=== PATIENT | male | born 1930 | race Caucasian/White ===

== ENCOUNTER 2017-05-21 22:53 | Inpatient (IN) | payer MEDICARE, BC ==
[2017-05-21] MEDS ORDERED: Sodium Chloride 0.9% 500 ML IV ONE (23:22)
[2017-05-22] MEDS ORDERED: Levofloxacin/Dextrose 5%-Water 750 MG in Premix Bag 1 BAG IV SCH (00:45)
--- NOTE | 2017-05-22 00:55 | EDM.PDOC ---
ED HPI GENERAL MEDICAL PROBLEM - General Chief Complaint: Gastrointestinal Problem Stated Complaint: WEAK Time Seen by Provider: 05/21/17 22:55 Source of Information: Reports: Patient, Family History Limitations: Reports: No Limitations - History of Present Illness INITIAL COMMENTS - FREE TEXT/NARRATIVE: c/o cough x 1w inc'd weak x 24h, ate only toast and 1/2 grapefruit for bfast, ate nothing and drank little today on no meds, never smoked no prior CV or pul problems no f/c/d, quite weak, cough day and night, minimal productive, has had rhinorrhea no flu vax here with and son rales R base on PE, infiltrate R base on XR, labs show inc'd lactic acid with borderline troponin 0.048 pt agrees to admission - Related Data Allergies Allergy/AdvReac Type Severity Reaction Status Date / Time No Known Allergies Allergy Verified 05/21/17 23:08 Home Meds: Home Meds Brimonidine/Timolol [Combigan 0.2%/0.5% Ophth Soln] 1 drop EYEBOTH BID 05/21/17 [History] Latanoprost [Latanoprost] 1 drop EYEBOTH BEDTIME 05/21/17 [History] Past Medical History HEENT History: Reports: Impaired Vision Social & Family History - Family History Family Medical History: Noncontributory - Tobacco Use Smoking Status *Q: Never Smoker - Caffeine Use Caffeine Use: Reports: Coffee, Soda - Recreational Drug Use Recreational Drug Use: No ED ROS GENERAL - Review of Systems Review Of Systems: See Below Constitutional: Reports: Malaise, Weakness, Fatigue, Decreased Appetite. Denies : Fever, Chills, Night Sweats HEENT: Reports: Rhinitis Respiratory: Reports: Shortness of Breath, Cough, Sputum, Other (son reports he can barely walk across room before sob) Cardiovascular: Reports: Dyspnea on Exertion. Denies: Chest Pain, Claudication , Edema, Lightheadedness, Orthopnea Endocrine: Reports: No Symptoms GI/Abdominal: Reports: No Symptoms : Reports: No Symptoms Musculoskeletal: Reports: No Symptoms Skin: Reports: No Symptoms Neurological: Reports: No Symptoms Psychiatric: Reports: No Symptoms Hematologic/Lymphatic: Reports: No Symptoms Immunologic: Reports: No Symptoms ED EXAM, GENERAL - Physical Exam Exam: See Below Exam Limited By: Uncooperative General Appearance: Alert, WD/WN, Mild Distress, Other (alert, pleasant, rare cough, no dyspnea, appears weak, cooperative, conversant) Eye Exam: Bilateral Eye: Normal Inspection, PERRL Ears: Normal External Exam, Normal Canal, Hearing Grossly Normal, Hearing Loss Nose: Normal Inspection, Normal Mucosa, No Blood, Nasal Swelling, Other ( minimal swell, clear d/c) Throat/Mouth: Normal Inspection, Normal Lips, Normal Teeth, Normal Gums, Normal Oropharynx, Normal Voice, No Airway Compromise Head: Atraumatic, Normocephalic Neck: Normal Inspection, Supple, Non-Tender, Full Range of Motion Respiratory/Chest: No Respiratory Distress, No Accessory Muscle Use, Chest Non- Tender, Other (rales R base up 1/3, anterior zarate clear) GI/Abdominal: Normal Bowel Sounds, Soft, Non-Tender, No Organomegaly, No Distention, No Mass Back Exam: Normal Inspection, Full Range of Motion, NT Extremities: Normal Inspection, Normal Range of Motion, Non-Tender, No Pedal Edema Neurological: Alert, Oriented, CN II-XII Intact, Normal Cognition, No Motor/ Sensory Deficits Psychiatric: Normal Affect Skin Exam: Warm, Dry, Intact, Normal Color, No Rash, Other (dec'd turgor ext x 4 , no edema, no tenting) Lymphatic: No Adenopathy Course - Vital Signs Last Recorded V/S: Last Vital Signs Temp 37.2 C 05/21/17 23:05 Pulse 72 05/21/17 23:05 Resp 17 05/21/17 23:05 BP 102/64 05/21/17 23:05 Pulse Ox 96 05/21/17 23:05 - Orders/Labs/Meds Orders: Active Orders 24 hr Category Date Time Status EKG Documentation Completion [RC] ASDIRECTED Care 05/21/17 23:13 Active Chest 2V [CR] Stat Exams 05/21/17 23:12 Taken CULTURE BLOOD [BC] Urgent Lab 05/21/17 23:30 Received CULTURE BLOOD [BC] Urgent Lab 05/21/17 23:38 Received UA W/MICROSCOPIC [URIN] Stat Lab 05/21/17 23:12 Uncollected Levofloxacin/Dextrose 5%-Water [Levaquin in D5W 750 MG/ Med 05/22/17 00:45 Ordered 150 ML] 750 mg Premix Bag 1 bag IV Q24H Blood Culture x2 Reflex Set [OM.PC] Urgent Oth 05/21/17 23:12 Ordered EKG 12 Lead [EK] Routine Ther 05/21/17 23:12 Ordered Medication Orders Levofloxacin/Dextrose 750 mg/ (Premix) 150 mls @ 100 mls/hr IV Q24H LARY Labs: Laboratory Tests 05/21/17 05/21/17 05/21/17 Range/Units 23:30 23:30 23:30 WBC 14.1 H (4.5-12.0) X10-3/uL RBC 5.16 (4.30-5.75) x10(6)uL Hgb 15.5 (11.5-15.5) g/dL Hct 47.6 (30.0-51.3) % MCV 92.3 (80-96) fL MCH 30.0 (27.7-33.6) pg MCHC 32.5 (32.2-35.4) g/dL RDW 13.8 (11.5-15.5) % Plt Count 134 (125-369) X10(3)uL MPV 10.4 (7.4-10.4) fL Add Manual Diff Yes Neutrophils % (Manual) 86 H (46-82) % Band Neutrophils % 2 (0-6) % Lymphocytes % (Manual) 5 L (13-37) % Monocytes % (Manual) 7 (4-12) % Sodium 140 (135-145) mmol/L Potassium 3.9 (3.5-5.3) mmol/L Chloride 104 (100-110) mmol/L Carbon Dioxide 26 (21-32) mmol/L BUN 27 H (7-18) mg/dL Creatinine 1.2 (0.70-1.30) mg/dL Est Cr Clr Drug Dosing 47.77 mL/min Estimated GFR (MDRD) 57 L (>60) BUN/Creatinine Ratio 22.5 H (9-20) Glucose 190 H (80-116) mg/dL Lactic Acid (0.4-2.2) mmol/L Calcium 8.7 (8.6-10.2) mg/dL Total Bilirubin 0.5 (0.1-1.3) mg/dL AST 46 H (5-25) IU/L ALT 39 H (12-36) U/L Alkaline Phosphatase 50 L (56-112) IU/L Troponin I 0.048 (<0.017-0.056) ng/mL C-Reactive Protein 2.3 H (0.5-0.9) mg/dL Total Protein 6.8 (6.0-8.0) g/dL Albumin 3.0 L (3.2-4.6) g/dL Globulin 3.8 g/dL Albumin/Globulin Ratio 0.8 05/21/17 Range/Units 23:30 WBC (4.5-12.0) X10-3/uL RBC (4.30-5.75) x10(6)uL Hgb (11.5-15.5) g/dL Hct (30.0-51.3) % MCV (80-96) fL MCH (27.7-33.6) pg MCHC (32.2-35.4) g/dL RDW (11.5-15.5) % Plt Count (125-369) X10(3)uL MPV (7.4-10.4) fL Add Manual Diff Neutrophils % (Manual) (46-82) % Band Neutrophils % (0-6) % Lymphocytes % (Manual) (13-37) % Monocytes % (Manual) (4-12) % Sodium (135-145) mmol/L Potassium (3.5-5.3) mmol/L Chloride (100-110) mmol/L Carbon Dioxide (21-32) mmol/L BUN (7-18) mg/dL Creatinine (0.70-1.30) mg/dL Est Cr Clr Drug Dosing mL/min Estimated GFR (MDRD) (>60) BUN/Creatinine Ratio (9-20) Glucose (80-116) mg/dL Lactic Acid 3.4 H (0.4-2.2) mmol/L Calcium (8.6-10.2) mg/dL Total Bilirubin (0.1-1.3) mg/dL AST (5-25) IU/L ALT (12-36) U/L Alkaline Phosphatase (56-112) IU/L Troponin I (<0.017-0.056) ng/mL C-Reactive Protein (0.5-0.9) mg/dL Total Protein (6.0-8.0) g/dL Albumin (3.2-4.6) g/dL Globulin g/dL Albumin/Globulin Ratio Meds: Medications Generic Name Dose Route Start Last Admin Trade Name Freq PRN Reason Stop Dose Admin Levofloxacin/Dextrose 750 mg/ 150 mls @ 100 mls/hr 05/22/17 00:45 Premix IV Q24H LARY Discontinued Medications Generic Name Dose Route Start Last Admin Trade Name Freq PRN Reason Stop Dose Admin Sodium Chloride 500 mls @ 500 mls/hr 05/21/17 23:22 Normal Saline IV 05/22/17 00:21 .BOLUS ONE Departure - Departure Time of Disposition: 00:56 Disposition: Admitted As Inpatient 64 Condition: Fair Clinical Impression: RLL pneumonia, Lactic acidosis, Moderate dehydration, Anorexia, Acute prerenal azotemia, Elevated LFTs, Elevated C-reactive protein (CRP), Hypoalbuminemia, First degree atrioventricular block, Left axis deviation - Discharge Information Referrals: Fredy Smith MD [Primary Care Provider] - - My Orders Last 24 Hours: My Active Orders 05/21/17 23:12 Chest 2V [CR] Stat UA W/MICROSCOPIC [URIN] Stat Blood Culture x2 Reflex Set [OM.PC] Urgent EKG 12 Lead [EK] Routine 05/21/17 23:13 EKG Documentation Completion [RC] ASDIRECTED 05/21/17 23:30 CULTURE BLOOD [BC] Urgent 05/21/17 23:38 CULTURE BLOOD [BC] Urgent 05/22/17 00:45 Levofloxacin/Dextrose 5%-Water [Levaquin in D5W 750 MG/150 ML] 750 mg Premix Bag 1 bag IV Q24H - Assessment/Plan Last 24 Hours: My Active Orders 05/21/17 23:12 Chest 2V [CR] Stat UA W/MICROSCOPIC [URIN] Stat Blood Culture x2 Reflex Set [OM.PC] Urgent EKG 12 Lead [EK] Routine 05/21/17 23:13 EKG Documentation Completion [RC] ASDIRECTED 05/21/17 23:30 CULTURE BLOOD [BC] Urgent 05/21/17 23:38 CULTURE BLOOD [BC] Urgent 05/22/17 00:45 Levofloxacin/Dextrose 5%-Water [Levaquin in D5W 750 MG/150 ML] 750 mg Premix Bag 1 bag IV Q24H
[2017-05-22] MEDS ORDERED: Sodium Chloride 0.9% 1,000 ML IV SCH (01:00)
[2017-05-22] MEDS ORDERED: Acetaminophen 325 MG Tab PO PRN (01:42)
[2017-05-22] MEDS ORDERED: Zolpidem 5 MG Tab PO PRN (01:42)
[2017-05-22] MEDS ORDERED: Ondansetron 4 MG/2 ML SDV IV PRN (01:42)
[2017-05-22] MEDS: Brimonidine/Timolol 0.2%/0.5% Ophth Soln 5 ML Bottle EYEBOTH SCH ×2 (09:05→20:21)
--- NOTE | 2017-05-22 09:05 | PCM.HP ---
H&P History of Present Illness - General Date of Service: 05/22/17 Admit Problem/Dx: Admission Diagnosis/Problem Admission Diagnosis/Problem Right lower lobe pneumonia Source of Information: Patient, Old Records History Limitations: Reports: No Limitations - History of Present Illness Initial Comments - Free Text/Narative: This is an 86-year-old male patient comes to the ER last night with cough, shortness of breath fatigue. He says his been going on for about a week and getting worse. Position does not make it any worse or better. He says for quite a while he's been feeling fatigued and weak. He denies fevers, chills, ear pain , nausea, vomiting, sore throat. He was diagnosed pneumonia and admitted. - Related Data Allergies/Adverse Reactions: Allergies Allergy/AdvReac Type Severity Reaction Status Date / Time No Known Allergies Allergy Verified 05/21/17 23:08 Home Medications: Home Meds Brimonidine/Timolol [Combigan 0.2%/0.5% Ophth Soln] 1 drop EYEBOTH BID 05/21/17 [History] Latanoprost [Latanoprost] 1 drop EYEBOTH BEDTIME 05/21/17 [History] Past Medical History HEENT History: Reports: Glaucoma, Impaired Vision Social & Family History - Family History Family Medical History: Noncontributory - Tobacco Use Smoking Status *Q: Former Smoker Used Tobacco, but Quit: No - Caffeine Use Caffeine Use: Reports: Coffee - Recreational Drug Use Recreational Drug Use: No H&P Review of Systems - Review of Systems: Review Of Systems: See Below General: Reports: No Symptoms HEENT: Reports: Other (Hearing loss otherwise denied) Pulmonary: Reports: Shortness of Breath, Cough. Denies: Wheezing, Sputum Cardiovascular: Reports: No Symptoms Gastrointestinal: Reports: No Symptoms Genitourinary: Reports: No Symptoms Musculoskeletal: Reports: No Symptoms Skin: Reports: No Symptoms Psychiatric: Reports: No Symptoms Neurological: Reports: No Symptoms Hematologic/Lymphatic: Reports: No Symptoms Immunologic: Reports: No Symptoms Exam - Exam Exam: See Below - Vital Signs Vital Signs: Last Vital Signs Temp 99.3 F 05/22/17 04:00 Pulse 74 05/22/17 04:00 Resp 18 05/22/17 04:00 BP 103/53 L 05/22/17 04:00 Pulse Ox 95 05/22/17 04:00 Weight: 157 lb - Exam General: Alert, Oriented, Cooperative HEENT: Hearing Intact (With hearing aids), Mucosa Moist & [place], Posterior Pharynx Clear, TMs Clear, Other (Upper plate) Neck: Supple, Trachea Midline, 2 Lungs: Clear to Auscultation, Normal Respiratory Effort. No: Crackles, Rales, Rhonchi, Rub Cardiovascular: Regular Rate, Regular Rhythm. No: Systolic Murmur, Diastolic Murmur GI/Abdominal Exam: Normal Bowel Sounds, Soft, Non-Tender, No Organomegaly, No Distention, No Abnormal Bruit, No Mass Back Exam: Normal Inspection, Full Range of Motion Extremities: Normal Inspection, Normal Range of Motion, Non-Tender, No Pedal Edema Skin: Warm, Dry, Intact Neurological: Normal Speech, Normal Tone Neuro Extensive - Mental Status: Alert, Oriented x3, Normal Mood/Affect, Normal Cognition Neuro Extensive - Motor, Sensory, Reflexes: Normal Gait Psychiatric: Alert, Normal Affect, Normal Mood - Patient Data Lab Results Last 24 hrs: Laboratory Results - last 24 hr 05/22/17 05/22/17 05/22/17 Range/Units 06:20 06:20 06:20 WBC 14.8 H (4.5-12.0) X10-3/uL RBC 4.45 (4.30-5.75) x10(6)uL Hgb 13.9 (11.5-15.5) g/dL Hct 40.9 (30.0-51.3) % MCV 92.0 (80-96) fL MCH 31.1 (27.7-33.6) pg MCHC 33.8 (32.2-35.4) g/dL RDW 13.5 (11.5-15.5) % Plt Count 115 L (125-369) X10(3)uL MPV 10.0 (7.4-10.4) fL Add Manual Diff Yes Neutrophils % (Manual) 78 (46-82) % Band Neutrophils % 2 (0-6) % Lymphocytes % (Manual) 13 (13-37) % Monocytes % (Manual) 7 (4-12) % Sodium 140 (135-145) mmol/L Potassium 3.8 (3.5-5.3) mmol/L Chloride 104 (100-110) mmol/L Carbon Dioxide 28 (21-32) mmol/L BUN 25 H (7-18) mg/dL Creatinine 1.0 (0.70-1.30) mg/dL Est Cr Clr Drug Dosing 51.43 mL/min Estimated GFR (MDRD) > 60 (>60) BUN/Creatinine Ratio 25.0 H (9-20) Glucose 120 H (80-116) mg/dL Calcium 8.4 L (8.6-10.2) mg/dL Troponin I 0.035 (<0.017-0.056) ng/mL NT-Pro-B Natriuret Pep 585 H (<=450) pg/mL Result Diagrams: 05/22/17 06:20 05/22/17 06:20 *Q Meaningful Use (ADM) - VTE *Q VTE Criteria *Q: - Stroke *Q Stroke Criteria *Q: - AMI *Q AMI Criteria *Q: - Problem List (1) Pneumonia SNOMED Code(s): 836184608 ICD Code: J18.9 - PNEUMONIA, UNSPECIFIED ORGANISM Status: Acute Current Visit: Yes (2) Palliative care status SNOMED Code(s): 242898401 ICD Code: Z51.5 - ENCOUNTER FOR PALLIATIVE CARE Status: Acute Current Visit: Yes (3) Elevated LFTs SNOMED Code(s): 121733772 ICD Code: R79.89 - OTHER SPECIFIED ABNORMAL FINDINGS OF BLOOD CHEMISTRY Status: Acute Current Visit: Yes Problem List Initiated/Reviewed/Updated: Yes Orders Last 24hrs: Active Orders 24 hr Category Date Time Status Oxygen Therapy [RC] PRN Care 05/22/17 01:42 Active Telemetry Monitoring [Cardiac Monitoring] [RC] .As Care 05/22/17 01:02 Inactive Directed Up With Assistance [RC] ASDIRECTED Care 05/22/17 01:42 Active VTE/DVT Education [RC] Per Unit Routine Care 05/22/17 01:42 Active Vital Signs [RC] 00,04,08,12,16,20 Care 05/22/17 01:42 Active Consult to Occupational Therapy [OT Evaluation and Cons 05/22/17 08:55 Ordered Treatment] [CONS] Routine Consult to Physical Therapy [PT Evaluation and Cons 05/22/17 08:55 Ordered Treatment] [CONS] Routine 2 Gram Sodium Diet [DIET] Diet 05/22/17 Breakfast Active Chest 2V [CR] Routine Exams 05/23/17 07:00 Ordered BASIC METABOLIC PANEL,BMP [CHEM] DAILY Lab 05/23/17 06:00 Ordered BASIC METABOLIC PANEL,BMP [CHEM] DAILY Lab 05/24/17 06:00 Ordered BASIC METABOLIC PANEL,BMP [CHEM] DAILY Lab 05/25/17 06:00 Ordered BASIC METABOLIC PANEL,BMP [CHEM] DAILY Lab 05/26/17 06:00 Ordered BASIC METABOLIC PANEL,BMP [CHEM] DAILY Lab 05/27/17 06:00 Ordered BASIC METABOLIC PANEL,BMP [CHEM] DAILY Lab 05/28/17 06:00 Ordered CBC WITH AUTO DIFF [HEME] DAILY Lab 05/23/17 06:00 Ordered CBC WITH AUTO DIFF [HEME] DAILY Lab 05/24/17 06:00 Ordered CBC WITH AUTO DIFF [HEME] DAILY Lab 05/25/17 06:00 Ordered CBC WITH AUTO DIFF [HEME] DAILY Lab 05/26/17 06:00 Ordered CBC WITH AUTO DIFF [HEME] DAILY Lab 05/27/17 06:00 Ordered CBC WITH AUTO DIFF [HEME] DAILY Lab 05/28/17 06:00 Ordered TROPONIN I [CHEM] DAILY Lab 05/23/17 06:00 Ordered Acetaminophen [Tylenol] Med 05/22/17 01:42 Active 650 mg PO Q4H PRN Brimonidine/Timolol [Combigan 0.2%/0.5% Ophth Soln] Med 05/22/17 09:00 Active 0 ml EYEBOTH BID Enoxaparin [Lovenox] Med 05/22/17 08:00 Active 40 mg SUBCUT Q24H Latanoprost [Xalatan 0.005% Ophth Soln] Med 05/22/17 21:00 Active 0 ml EYEBOTH BEDTIME Levofloxacin/Dextrose 5%-Water [Levaquin in D5W 750 MG/ Med 05/23/17 00:00 Active 150 ML] 750 mg Premix Bag 1 bag IV Q24H Ondansetron [Zofran] Med 05/22/17 01:42 Active 4 mg IV Q4H PRN Sodium Chloride 0.9% [Normal Saline] 1,000 ml Med 05/22/17 01:45 Active IV ASDIRECTED Zolpidem [Ambien] Med 05/22/17 01:42 Active 5 mg PO BEDTIME PRN Resuscitation Status Routine Resus Stat 05/22/17 01:42 Ordered EKG 12 Lead [EK] AM Ther 05/22/17 05:11 Ordered EKG 12 Lead [EK] AM Ther 05/23/17 05:11 Ordered Medication Orders Acetaminophen (Tylenol) 650 mg PO Q4H PRN PRN Reason: Pain (Mild 1-3)/fever Brimonidine/Timolol (Combigan 0.2%/0.5% Ophth Soln) 0 ml EYEBOTH BID LARY Enoxaparin Sodium (Lovenox) 40 mg SUBCUT Q24H LARY Levofloxacin/Dextrose 750 mg/ (Premix) 150 mls @ 100 mls/hr IV Q24H LARY Sodium Chloride (Normal Saline) 1,000 mls @ 75 mls/hr IV ASDIRECTED LARY Latanoprost (Xalatan 0.005% Ophth Soln) 0 ml EYEBOTH BEDTIME LARY Ondansetron HCl (Zofran) 4 mg IV Q4H PRN PRN Reason: Nausea/Vomiting Zolpidem Tartrate (Ambien) 5 mg PO BEDTIME PRN PRN Reason: Sleep Assessment/Plan Comment:: 1. Admit for pneumonia. 2. IV fluids. 3. Continue his glaucoma drops 4. PT/OT 5. IV antibiotics 6. VTE prophylaxis 7. Regular diet. 8. Up ad kalen.
[2017-05-22] MEDS: Enoxaparin 40 MG/0.4 ML Syringe SUBCUT SCH (10:56)
[2017-05-22] MEDS: Sodium Chloride 0.9% 1,000 ML IV SCH (18:39)
[2017-05-22] MEDS: Latanoprost 0.005% Ophth Soln 2.5 ML Bottle EYEBOTH SCH (20:21)
[2017-05-22] MEDS: Levofloxacin/Dextrose 5%-Water 750 MG in Premix Bag 1 BAG IV SCH (23:52)
[2017-05-23] MEDS: Brimonidine/Timolol 0.2%/0.5% Ophth Soln 5 ML Bottle EYEBOTH SCH ×2 (09:15→20:05)
[2017-05-23] MEDS: Sodium Chloride 0.9% 1,000 ML IV SCH ×2 (09:48→22:58)
[2017-05-23] MEDS: Enoxaparin 40 MG/0.4 ML Syringe SUBCUT SCH (09:57)
[2017-05-23] MEDS ORDERED: Azithromycin 500 MG in Sodium Chloride 0.9% 250 ML IV SCH (11:00)
--- NOTE | 2017-05-23 12:26 | PN ---
DATE SEEN: 05/23/2017 SUBJECTIVE: Oziel Mc is an 86-year-old male, admitted with respiratory distress, complicated cough and evidence of bilateral pneumonia. Appears to be more comfortable this morning. LABORATORY STUDIES: White count has fallen from 14.1 to 10.7, hemoglobin stable at 12.4. Electrolytes were otherwise satisfactory, and comfortable. Blood cultures negative x2 days. OBJECTIVE: VITAL SIGNS: Temperature 36.3 Fahrenheit, Pulse 70, blood pressure 111/62, respirations 18, and O2 saturations 95%. GENERAL: Appears comfortable. NECK: Benign. Thyroid small. CHEST: Decreased breath sounds both bases. HEART: Regular. ABDOMEN: Benign. ASSESSMENT: Bilateral Pneumonia. PLAN: We will add azithromycin to levofloxacin, complementary care and well- being, close observation, re- x-ray tomorrow. /[id number] KATE/ANTONINA
[2017-05-23] MEDS: Latanoprost 0.005% Ophth Soln 2.5 ML Bottle EYEBOTH SCH (20:11)
[2017-05-24] MEDS: Levofloxacin/Dextrose 5%-Water 750 MG in Premix Bag 1 BAG IV SCH ×2 (00:09→23:52)
[2017-05-24] MEDS: Enoxaparin 40 MG/0.4 ML Syringe SUBCUT SCH (08:53)
[2017-05-24] MEDS: Brimonidine/Timolol 0.2%/0.5% Ophth Soln 5 ML Bottle EYEBOTH SCH ×2 (08:53→21:00)
--- NOTE | 2017-05-24 12:05 | PN ---
DATE SEEN: 05/24/2017 SUBJECTIVE: Oziel Mc is an 86-year-old male, admitted for acute respiratory distress. Complicated cough and evidence of a bilateral pneumonia. Response appears to be comfortable. Chest x-ray reveals clinical improvement. LABORATORY STUDIES: White count has fallen from 14,100 to 14,800 to 7200, hemoglobin is stable at 12.3, platelets 118,000. Microbiology influenza A and B were negative, no growth on blood cultures. OBJECTIVE: VITAL SIGNS: 36.3, 73, 115/66, respiratory rate of 20, 94%. GENERAL: Better spirits. NECK: Benign. Thyroid is small. CHEST: Clear. RESPIRATORY: Better oxygen, was clear, better air exchange. ABDOMEN: Benign. ASSESSMENT: Improving pneumonia. PLAN: Medications, care and treatment appropriate, continue IV antibiotics. Discharge in the next 2 days. /[id number] /ANTONINA
[2017-05-24] MEDS: Sodium Chloride 0.9% 1,000 ML IV SCH (14:10)
[2017-05-24] MEDS ORDERED: Diltiazem 180 MG Cap.CD PO ONE (20:36)
[2017-05-24] MEDS: Latanoprost 0.005% Ophth Soln 2.5 ML Bottle EYEBOTH SCH (21:04)
[2017-05-24] MEDS ORDERED: Sodium Chloride 0.9% 10 ML Syringe FLUSH PRN (22:17)
[2017-05-25] MEDS: Brimonidine/Timolol 0.2%/0.5% Ophth Soln 5 ML Bottle EYEBOTH SCH ×2 (08:11→20:53)
[2017-05-25] MEDS: Enoxaparin 40 MG/0.4 ML Syringe SUBCUT SCH (08:12)
[2017-05-25] MEDS ORDERED: Levofloxacin 500 MG Tab PO SCH (11:30)
--- NOTE | 2017-05-25 14:02 | PN ---
DATE SEEN: 05/25/2017 SUBJECTIVE: Oziel Mc is an 86-year-old male, admitted with complicated pneumonia. Clinically better. Radiologist interpretation still under review. LABORATORY STUDIES: White count has fallen from 14,000 to 7800, hemoglobin stable at 12.9. Electrolytes satisfactory and comfortable. OBJECTIVE: VITAL SIGNS: 36.9, 109 is the pulse, 89/39, 20, 95. GENERAL: Appears comfortable for the most part. CHEST: Clear in all lung zarate. HEART: Regular without ectopy or murmur. ABDOMEN: Benign. No hepatosplenomegaly. ASSESSMENT: 1. Pneumonia, bilateral. 2. Recent tachyarrhythmia, atrial fibrillation. PLAN: We will observe today. We will switch from IV to oral medicines, complementary care and well being. Likely discharge home tomorrow. /[id number] KATE/ANTONINA
[2017-05-25] MEDS: Latanoprost 0.005% Ophth Soln 2.5 ML Bottle EYEBOTH SCH (21:00)
[2017-05-26] MEDS: Enoxaparin 40 MG/0.4 ML Syringe SUBCUT SCH (08:22)
[2017-05-26] MEDS: Brimonidine/Timolol 0.2%/0.5% Ophth Soln 5 ML Bottle EYEBOTH SCH (08:23)
[2017-05-26] MEDS ORDERED: Levofloxacin 500 MG Tab PO SCH (11:30)
--- NOTE | 2017-05-26 14:50 | CR ---
INDICATION: Weak, cough x1 week, rales right lower lung field. CHEST: PA and lateral views of the chest were obtained with two PA views, 06/01 at 1210 a.m. and compared with 10/22/2010. Allowing for changes in technique, very little interval change was identified, with the heart appearing normal in size. The aorta is tortuous with calcification in the arch. Rather heavy markings are again noted in the right mid lateral lung field and at the right lung base, as well as to a lesser extent at the left lung base, but appearing essentially unchanged from the previous examination, and likely on the basis of pulmonary fibrosis. However, a superimposed area of patchy pneumonia in these areas, cannot be excluded. No consolidating pneumonia or effusion was identified. The study is somewhat limited by lack of inclusion of the posterior sulci on the lateral view. Mild to moderate degenerative changes are noted in the thoracic spine. IMPRESSION: 1. No definite acute process, but difficult to entirely exclude areas of patchy bronchopneumonia in areas of pulmonary fibrosis seen bilaterally. 2. ASD aorta. 3. DJD spine. MTDD
--- NOTE | 2017-05-26 14:54 | CR ---
INDICATION: Short of breath, right lower lobe pneumonia. CHEST: Two PA views and a lateral view of the chest obtained 05/23/2017, (at 1042 hours), were compared with 05/22/2017 and 10/22/2010, revealing no definite interval change or definite acute process. MTDD
--- NOTE | 2017-05-26 14:56 | CR ---
INDICATION: Pneumonia. CHEST: PA and lateral views of the chest 05/24/2017, at 0812 hours, were compared with 05/23/2017 and 05/22/2017 examinations, revealing suggestion of slightly increased infiltration in the right mid lower lung field laterally, compared with the previous study, raising question of some minimal patchy pneumonia superimposed on fibrosis in that area. Otherwise, no significant interval change or definite acute process was identified. MTDD
--- NOTE | 2017-05-27 00:53 | DISCH ---
DISCHARGE DATE: 05/26/2017 HOSPITAL COURSE: Oziel Mc is an 86-year-old male, admitted to [facility] on 05/22. He presents with cough, dyspnea, problematic fatigue, worsening symptoms, low-grade fever, and a sense of reduced well-being. Radiographs revealed a bilateral pneumonia. He was placed in the hospital. Appropriate diagnostic studies were performed including influenza A and B testing, blood cultures were negative, CBC revealed elevated white count of 14,800. During the course of his hospital stay, aggressive RT treatment, fluids, intravenous levofloxacin, in good clinical response. O2 was required early in his course of therapy, weaned accordingly. Most recent radiograph revealed good clinical response. Up ambulating, not short of breath, and in good spirits. DISPOSITION: Discharged home. FOLLOWUP: Follow up with Dr. Smith in 2 weeks' duration, please see med recon list. /[id number] KATE/ANTONINA
== END 2017-05-26 13:40 | disposition home or self-care (01) | DRG 195 ==
LOC: FB.ED 22:53 → FB.MS 05-22 01:01
PROVIDERS: ADMIT Emergency Medicine; ATTEND Family Medicine
DX: J18.9 Pneumonia, unspecified organism (principal); E86.0 Dehydration; R06.02 Shortness of breath; R63.0 Anorexia; R79.89 Other specified abnormal findings of blood chemistry; R79.82 Elevated C-reactive protein (CRP); Z87.891 Personal history of nicotine dependence; Z51.5 Encounter for palliative care; R53.1 Weakness; R05 Cough; H40.9 Unspecified glaucoma; I48.91 Unspecified atrial fibrillation
CPT/HCPCS: 71020; 81001; 85025; 87040 ×2; 87804 ×2; 93005; 96361; 99285; J7040; 36415; 80048; 80053; 83605; 83735; 83880; 84443; 84484; 86140; 93010; 94150; 96360; 96374; 97161-GP; A9270-GY; J1650; J1956; J7050